=== PATIENT | male | born 1945 | race Caucasian/White ===

== ENCOUNTER 2016-12-29 13:37 | Day surgery (SDC) | payer MEDICARE, BC ==
[~2016-12-29 13:37] MED LIST: ALLBC PO; ASPI81 PO; ATOR20TA42 PO; COQ150CA PO; EZET10 PO; LORA0.5T PO; NAPR220C2 PO; OMEGCAP2 PO; TAB-TAB PO; TOPR25TA2 PO; VITA200T5 PO; [UNRECOGNIZED DRUG - CODE]
[2016-12-29 14:06] VITALS: BP 156/80; PULSE 83; RESP 20; TEMP 97.7; O2SAT 98
--- NOTE | 2016-12-29 15:29 | RADRPT ---
EXAM DATE/TIME: 12/29/2016 00:00 [place] COMPARISON : No previous studies available for comparison. INDICATIONS : IMPROVEMENT INTERN STENOSIS/TIA OBJECTIVE: Temperature: 97.7 Heart Rate: 83 Blood Pressure: 156/80 Respiratory: 16 Oximetry: 98 PNEUMONIA VACCINE: NO HISTORY OF PRESENT ILLNESS: Patient is a 71-year-old white male with a history 6 months ago of a TIA consisting of memory loss wi th no focal loss of motor, sensory or visual difficulties. In the evaluation of his etiology for stro ke CT angiography demonstrates approximately 50% stenosis involving the right posterior cerebral chanda ry. Currently the patient has no symptoms and has no visual difficulties or recurrent episodes of TIA . He has recently had pacemaker placement without difficulty. He is on Xarelto as well as statins. PAST MEDICAL HISTORY : 1. TIA 2. Hypertension. 3. Diabetes mellitus 2. 4. Carcinoma, prostate. 5. Cardiovascular disease. PAST SURGICAL HISTORY : 1. CABG 2. Inguinal Hernia 3. Prostectomy 4. Knee surgery 5. Lumbar Laminectomy 6. Pace Maker SOCIAL HISTORY : Social alcohol use. Tobacco;none. ALLERGIES: 1. NKDA MEDICATIONS: 1. Xarelto (Rivaroxaban) 20 mg q.d. 2. Ativan 0.5 mg b.i.d. 3. MVI q.d. 4. HCTZ 25 mg q.d. 5. Losartan 25 mg q.d. 6. [id number] M-W-F mg 7. Zetia 10 mg q.h.s. 8. Atorvastatin 20 mg q.h.s. 9. Glumetza (Metformin)500mg mg q.d. IMAGING STUDIES: CT angiogram as above with 50% stenosis involving the right posterior cerebral artery. The remainder of intracranial circulation is intact. 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 The patient is currently on an adequate medical reg imen with coagulation and statins. No intervention is warranted unless the patient demonstrates focal neurologic deficits correlating to the right occipital lobe that are not responsive to maximal medic al therapy. TIME SPENT: 15 minutes Jorge Lopez MD on December 29, 2016 at 15:23 Board Certified Radiologist. This report was verified electronically.
== END 2016-12-29 14:54 | disposition home or self-care (01) ==
LOC: HROP 13:37 → HRIP 13:39 → HROP 14:54
PROVIDERS: ATTEND Specialist
DX: I66.21 Occlusion and stenosis of right posterior cerebral artery (principal); I25.10 Atherosclerotic heart disease of native coronary artery without angina pectoris; E11.9 Type 2 diabetes mellitus without complications; Z79.01 Long term (current) use of anticoagulants; Z79.84 Long term (current) use of oral hypoglycemic drugs; Z95.0 Presence of cardiac pacemaker; Z95.1 Presence of aortocoronary bypass graft; Z86.73 Personal history of transient ischemic attack (TIA), and cerebral infarction without residual deficits; Z85.46 Personal history of malignant neoplasm of prostate
CPT/HCPCS: 99213; G0463